=== PATIENT | female | born 1965 | race Caucasian/White ===

== ENCOUNTER → 2017-07-22 | Outpatient (REF) | payer OTHER ==
[2017-07-22 14:17] LABS: INFLUENZA A AMPLIFICATION NEGATIVE (NEGATIVE); INFLUENZA B AMPLIFICATION NEGATIVE (NEGATIVE)
== END ==
LOC: M LAB REF 13:11
DX: R50.9 Fever, unspecified (principal); J06.9 Acute upper respiratory infection, unspecified
CPT/HCPCS: 87502

== ENCOUNTER → 2017-11-29 | Outpatient (CLI) | payer OTHER | LOC: M RAD 14:37 | DX: R22.1 Localized swelling, mass and lump, neck (principal) ==

== ENCOUNTER → 2017-12-10 | Outpatient (CLI) | payer OTHER ==
[~2017-12-10] MED LIST: ISOVUE-370 76% 100ML VIAL (Q9967) As Ordered
== END ==
LOC: M RAD 13:49
DX: E04.1 Nontoxic single thyroid nodule (principal); R22.1 Localized swelling, mass and lump, neck
CPT/HCPCS: Q9967

== ENCOUNTER → 2018-01-14 | Outpatient (CLI) | payer OTHER, BC ==
[~2018-01-14] MED LIST changes: -ISOVUE-370 76% 100ML VIAL (Q9967) As Ordered; +LIDOCAINE 1% MDV 20ML VIAL As Ordered
== END ==
LOC: M RAD 07:48
DX: E04.9 Nontoxic goiter, unspecified (principal)

== ENCOUNTER → 2018-07-01 | Outpatient (CLI) | payer BC, OTHER ==
--- NOTE | 2018-07-01 15:57 | REP ---
HISTORY: Followup nodules. COMPARISON: 01/14/2018 Right lobe of the thyroid gland measures 3.9 x 1.7 x 1.5 cm and the left lobe measures 3.8 x 1.1 x 1.4 cm. The isthmus measures 3 mm. There are multiple solid nodules, all unchanged from the prior exam. IMPRESSION: No change. Electronically Signed by Federico Montejo DO 07/01/2018 04:55 P
== END ==
LOC: M RAD 11:50
PROVIDERS: ATTEND Otolaryngology
DX: E04.2 Nontoxic multinodular goiter (principal)

== ENCOUNTER → 2018-08-04 | Outpatient (REF) | payer BC ==
[2018-08-04 12:59] LABS: AMYLASE 47 U/L (25-115); LIPASE 157 U/L (73-393)
[2018-08-05 09:05] LABS: H PYLORI QUALITATIVE IgG DETECTED (NEGATIVE)
== END ==
LOC: M LAB REF 11:55
PROVIDERS: ATTEND Nurse Practitioner Family
DX: R10.13 Epigastric pain (principal); R10.12 Left upper quadrant pain

== ENCOUNTER 2018-09-06 09:38 | Emergency (ER) | payer BC ==
[~2018-09-06] VITALS: Ht 162.6 cm; Wt 76.1 kg
[2018-09-06] MEDS ORDERED: PANT40TA3 PO (09:44)
[2018-09-06] MEDS ORDERED: LEVO50TA5 PO (09:47)
--- NOTE | 2018-09-06 10:45 | REP ---
CT Head without contrast HISTORY: Trauma COMPARISON: None There is no intraparenchymal hemorrhage, acute infarct, mass or midline shift. The ventricular system is normal in appearance. There is no extra cerebral collection. There is no fracture. The visualized sinuses are clear. IMPRESSION: There is no intracranial lesion. Electronically Signed by Vamsi Uriarte MD 09/06/2018 10:37 A
--- NOTE | 2018-09-06 10:51 | REP ---
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 There is no acute fracture or subluxation. Disc bulges with associated osteophyte formation are present at the C3-4, C5-6 and C6-7 levels. There is minimal narrowing of the spinal canal. The process and/or facet hypertrophy are present at the C3-4, C5-6 and C6-7 levels. This produces minimal to mild narrowing of the neural foramina. The C3-4, C5-6 and C6-7 intervertebral discs are decreased in height consistent with disc degeneration. Calcifications are present in the thyroid gland. IMPRESSION: 1. There is no acute fracture or subluxation. 2. There is cervical spondylosis at the C3-4, C5-6 and C6-7 levels. Electronically Signed by Vamsi Uriarte MD 09/06/2018 10:43 A
[2018-09-06 11:43] VITALS: BP 128/71
[2018-09-06] MEDS ORDERED: MECL-68 PO (11:50)
== END 2018-09-06 12:01 | disposition home or self-care (01) ==
LOC: M ED 09:38
DX: S06.0X0A Concussion without loss of consciousness, initial encounter (principal); W00.0XXA Fall on same level due to ice and snow, initial encounter; Y92.018 Other place in single-family (private) house as the place of occurrence of the external cause; E07.9 Disorder of thyroid, unspecified; Z79.890 Hormone replacement therapy

== ENCOUNTER → 2018-09-20 | Outpatient (REF) | payer BC ==
[~2018-09-20] MED LIST changes: +LEVO50TA5 PO; -LIDOCAINE 1% MDV 20ML VIAL As Ordered; +MECL-68 PO; +PANT40TA3 PO
[2018-09-20 13:18] LABS: H PYLORI QUALITATIVE IgG DETECTED (NEGATIVE)
== END ==
LOC: M LAB REF 12:05
PROVIDERS: ATTEND Nurse Practitioner Family
DX: K25.9 Gastric ulcer, unspecified as acute or chronic, without hemorrhage or perforation (principal); R10.13 Epigastric pain

== ENCOUNTER → 2018-10-17 | Outpatient (REF) | payer BC | LOC: M LAB REF 09:51 | PROVIDERS: ATTEND Internal Medicine Gastroenterology | DX: K26.3 Acute duodenal ulcer without hemorrhage or perforation (principal); R10.13 Epigastric pain; A04.8 Other specified bacterial intestinal infections ==

== ENCOUNTER → 2019-04-27 | Outpatient (RCR) | payer BC | LOC: M PT 04-12 07:49 | PROVIDERS: ATTEND Orthopaedic Surgery Hand Surgery | DX: M19.012 Primary osteoarthritis, left shoulder (principal) ==

== ENCOUNTER → 2019-07-03 | Outpatient (CLI) | payer BC ==
--- NOTE | 2019-07-03 20:02 | REP ---
Clinical: Multinodular goiter. Technique: Real time sevilla scale and color evaluation using linear high frequency and curved array transducers. Findings: The thyroid gland is diffusely heterogeneous and demonstrates multiple bilateral nodules. Right lobe measures 4.8 x 1.6 x 1.7 cm and includes 2.3 x 1.4 x 1.6 cm stable complex cystic area in the lower pole along with a 1.1 x 0.9 x 1.0 cm solid mid pole nodule and 1.2 x 0.8 x 0.9 cm stable complex cyst approaching the isthmus. Left lobe measures 3.6 x 1.2 x 1.7 cm and includes 9 x 4 x 6 mm stable solid nodule at the mid pole, 5 x 5 x 4 mm complex cystic lesion at the lower pole, and 7 x 5 x 5 mm stable complex cystic lesion in the mid pole. Isthmus measures 3.5 mm in width. Impression: Nonspecific complex cystic structures and small nodules noted bilaterally. Findings appear stable and relatively new as compared to prior examination dated 07/01/2018. Electronically Signed by Omar Tanner MD 07/03/2019 07:54 P
== END ==
LOC: M RAD 10:42
PROVIDERS: ATTEND Otolaryngology
DX: E04.2 Nontoxic multinodular goiter (principal)

== ENCOUNTER → 2020-07-15 | Outpatient (CLI) | payer OTHER ==
[~2020-07-15] MED LIST changes: -MECL-68 PO; +MECL1TAB31 PO; +PANT40TA29 PO; -PANT40TA3 PO
--- NOTE | 2020-07-16 17:05 | REP ---
INDICATION: NON TOXIC MULTI NODULAR GOITER COMPARISON: 07/03/2019, 07/01/2018 TECHNIQUE: Lindsay scale and color evaluation of the thyroid gland using the linear high frequency transducer. FINDINGS: The thyroid gland is heterogeneous and asymmetrically enlarged. Right thyroid lobe measures 5.1 x 2.1 x 1.9 cm and includes 2.4 x 1.6 x 1.6 cm complex mid pole primarily solid lesion with cystic and hyperechoic components as well as 1.6 x 0.8 x 1.3 cm lower pole isoechoic solid nodule. Isthmus measures 3.3 mm in width. Left thyroid lobe measures 3.8 x 1.2 x 1.6 cm and includes few scattered complex primarily cystic lesions measuring 5.1 x 4.8 x 4.8 cm upper pole, 5.3 x 5.0 x 4.8 cm mid/lower pole, and 6.5 x 5.1 x 4.6 cm lower pole. IMPRESSION: Multinodular goiter with right lobe lesions relatively similar 09/08/2018 when allowing for variations in technique and more relatively benign cystic appearance to the left lobe lesions as compared through 09/08/2018. Based on appearance, right lobe lesions are ti-rads TR3/4 category and may benefit from fine needle aspiration. <Electronically signed by Omar Tanner > 07/16/20 [id number]
== END ==
LOC: M RAD 12:55
PROVIDERS: ATTEND Otolaryngology
DX: E04.2 Nontoxic multinodular goiter (principal)

== ENCOUNTER → 2020-08-29 | Outpatient (CLI) | payer OTHER ==
[~2020-08-29] MED LIST changes: +LIDOCAINE 1% MDV 20ML VIAL As Ordered ONE; +SODIUM BICARBONATE 8.4% INJ 50MEQ 50 ML VIAL As Ordered ONE
[2020-08-29 13:48] VITALS: BP 134/85
--- NOTE | 2020-08-29 14:58 | REP ---
INDICATION: RT THYROID NODULE. COMPARISON: None. TECHNIQUE: The procedure was performed by Elizabeth Yun [facility], under the direct supervision of Dr. Lindsay. The risks and benefits of the procedure were explained to the patient and an informed consent was obtained both verbally and written. Directly prior to the start of the procedure a formal time-out was completed in the procedure room. Both of the right thyroid lobe nodules were localized using ultrasound guidance. The skin was prepped and draped in a sterile fashion. A total of the 6 mL of buffered lidocaine was used as a local anesthetic. Using ultrasound guidance 4 fine needle aspirations were obtained using 25 gauge needles of the upper/mid pole thyroid nodule. Using ultrasound guidance another 4 fine needle aspirations were obtained using 25 gauge needles of the lower lobe nodule. FINDINGS: The patient tolerated the procedure well and there were no immediate complications. After the appropriate amount of monitored convalescence the patient was discharged from the department. IMPRESSION: Ultrasound-guided right thyroid nodule fine needle aspiration of both the upper/mid and the lower pole nodule. <Electronically signed by Elizabeth Yun > 08/29/20 1415 <Electronically signed by Alirio Lindsay > 08/29/20 [id number]
== END ==
LOC: M IRPRO 12:46
PROVIDERS: ATTEND Otolaryngology
DX: E04.2 Nontoxic multinodular goiter (principal)

== ENCOUNTER → 2021-08-20 | Outpatient (CLI) | payer OTHER ==
[~2021-08-20] MED LIST changes: -SODIUM BICARBONATE 8.4% INJ 50MEQ 50 ML VIAL As Ordered ONE
[2021-08-20 12:57] VITALS: BP 131/82
== END ==
LOC: M IRPRO 11:49
PROVIDERS: ATTEND Otolaryngology
DX: E04.2 Nontoxic multinodular goiter (principal)

== ENCOUNTER → 2021-11-04 | Outpatient (CLI) | payer OTHER ==
[~2021-11-04] MED LIST changes: -LIDOCAINE 1% MDV 20ML VIAL As Ordered ONE
== END ==
LOC: M RAD 07:20
PROVIDERS: ATTEND Registered Nurse
DX: M51.36 Other intervertebral disc degeneration, lumbar region (principal); M54.40 Lumbago with sciatica, unspecified side

== ENCOUNTER → 2022-02-16 | Outpatient (CLI) | payer OTHER | LOC: M RAD 09:26 | PROVIDERS: ATTEND Registered Nurse | DX: R06.02 Shortness of breath (principal); M41.9 Scoliosis, unspecified ==

== ENCOUNTER → 2022-02-16 | Outpatient (CLI) | payer OTHER ==
[~2022-02-16] MED LIST changes: +LIDOCAINE 1% MDV 20ML VIAL As Ordered ONE; +SODIUM BICARBONATE 8.4% INJ 50MEQ 50 ML VIAL As Ordered ONE
[2022-02-16 09:00] VITALS: BP 166/99
== END ==
LOC: M IRPRO 07:54
PROVIDERS: ATTEND Otolaryngology
DX: E04.2 Nontoxic multinodular goiter (principal)